=== PATIENT | female | born 1970 | race Caucasian/White ===

== ENCOUNTER 2018-05-02 09:02 | Day surgery (SDC) | payer BC ==
[~2018-05-02 09:02] MED LIST: ACETAMINOPHEN 1,000 MG/100 ML BTL IV ONE; CEFAZOLIN 2 Gram 2 GM/50 ML BAG IVPB ONE
[2018-05-02] MEDS ORDERED: SUGAMMADEX SODIUM 200 MG/2 ML VIAL IV ONE (09:03)
[2018-05-02] MEDS ORDERED: METOCLOPRAMIDE 10 MG TABLET PO ONE (09:03)
[2018-05-02] MEDS ORDERED: EPINEPHRINE 1 MG/ML AMPUL SQ ONE (09:03)
[2018-05-02] MEDS ORDERED: SUCCINYLCHOLINE 20 MG/ML 10ML IVP ONE (09:03)
[2018-05-02] MEDS ORDERED: FENTANYL PF 100MCG/2ML VIAL IV ONE (09:03)
[2018-05-02] MEDS ORDERED: ONDANSETRON HCL IV 4 MG/2 ML VIAL IVP ONE (09:03)
[2018-05-02] MEDS ORDERED: BUPIVACAINE LIPOSOME/PF 133MG/10ML VIAL IV ONE (09:03)
[2018-05-02] MEDS ORDERED: KETOROLAC 30 MG/ML VIAL IVP ONE (09:03)
[2018-05-02] MEDS ORDERED: DEXAMETHASONE 4 MG/ML 1ML VIAL IVP ONE (09:03)
[2018-05-02] MEDS ORDERED: LIDOCAINE 2% MDV (20MG/ML) 20ML VIAL IV ONE (09:03)
[2018-05-02] MEDS ORDERED: SEVOFLURANE 250 ML INH ONE (09:03)
[2018-05-02] MEDS ORDERED: FAMOTIDINE 20MG TABLET PO ONE (09:03)
[2018-05-02] MEDS ORDERED: SCOPOLAMINE 1 PATCH TDSY TD ONE (09:03)
[2018-05-02] MEDS ORDERED: MIDAZOLAM HCL 2MG/2ML VIAL IV ONE (09:03)
[2018-05-02] MEDS ORDERED: MORPHINE SULFATE PF 10MG/10ML VIAL IV ONE (09:03)
[2018-05-02] MEDS ORDERED: BUPIVACAINE 0.5% W/EPI MPF 30 ML VIAL IVP ONE (09:03)
[2018-05-02] MEDS ORDERED: METHYLPREDNISOLONE 40MG/VIAL IM ONE (09:03)
[2018-05-02] MEDS ORDERED: PROPOFOL 10 MG/ML VIAL IV ONE (09:03)
--- NOTE | 2018-05-02 14:09 | Operative Note ---
DATE OF SURGERY: 05/02/2018 PREOPERATIVE DIAGNOSIS: RIGHT SHOULDER IMPINGEMENT. POSTOPERATIVE DIAGNOSES: 1. CHRONICALLY TORN RIGHT ROTATOR CUFF TENDON. 2. POSTERIOR SUPERIOR GLENOHUMERAL LABRAL TEAR. 3. PROFOUND EXTERNAL IMPINGEMENT RIGHT SHOULDER. 4. RIGHT SHOULDER DISTAL CLAVICLE ARTHROSIS. PROCEDURE: 1. REPAIR OF A CHRONICALLY TORN RIGHT ROTATOR CUFF TENDON. 2. RIGHT SHOULDER ARTHROSCOPY WITH INTERARTICULAR DEBRIDEMENT. 3. RIGHT SHOULDER OPEN ACROMIOPLASTY, CA LIGAMENT RESECTION, SUBACROMIAL BURSECTOMY. 4. RIGHT SHOULDER DISTAL CLAVICLE RESECTION. STAFF SURGEON: PABLO MARRERO M.D. ANESTHESIA: GENERAL. PREPARATION: CHLORAPREP. INDIVIDUAL CONSIDERATIONS: NONE. PROCEDURE: The patient was taken to the Operating Room and placed supine on the operating table. She had had a successful induction with general anesthetic. She was then placed in a semi-seated beach chair position and the right arm and shoulder were prepped and draped in the usual fashion. Examination under anesthesia showed no instability. The patient had a posterior portal identified for arthroscopy. The skin was infiltrated with 0.5% Marcaine with Epinephrine prior. An #18 gauge spinal needle was placed in the joint and the joint was inflated with normal saline with a 60 mL syringe. A stab wound was made and a blunt tip trocar for the scope was placed in the joint and the joint was inflated with normal saline. An anterior accessory portal was then made just inferior to the intact long head of the biceps tendon in a retrograde fashion with a Wissinger rosa and the joint was irrigated out. The patient had an obvious tear of the rotator cuff at the supraspinatus. The glenohumeral joint was normal. Subscapularis and long head were normal. She had fraying of the labrum from heights to 8 to 1 o'clock. This was smoothed off with a shaver. The inferior pouch was free of loose bodies. After irrigation, the portals were closed with sky. The patient had an anterior approach to the subacromial space and distal clavicle. The skin was again infiltrated with 0.5% Marcaine with Epinephrine prior. Sharp dissection carried down through skin and subcutaneous tissues. Small veins were coagulated with a Bovie. An anterior deltoid interval was developed. Care was taken not to split the deltoid more than about 4 cm distal to the anterior tip of the acromion to prevent injury to the axillary nerve. Once in the subacromial space, there was a gavin of fluid consistent with a tear. The deltoid was then taken subperiosteally off the anterior aspect of the acromion, over the top of the intact CA ligament, and off the anterior aspect of the degenerated distal clavicle. The CA ligament was resected with a Bovie. The distal clavicle was resected with an oscillating saw taking about 1 cm. The patient had a huge spur with a downsloping acromion anteriorly. An anterior acromioplasty was performed taking about 1 cm, most of this being spur, and tapering to wedge posteromedially to include the spur at the AC joint. The undersurface was then smoothed with a rasp. A very thick bursa was debrided out. She had an obvious tear of the rotator cuff measuring about 2 cm. It looked subacute and retracted. I was able to debride it to good bleeding tendon and mobilize it. I brought it down to a trough, which I made with a bur at the tuberosity. I placed retention sutures into the end of the tendon and then brought it into the trough and then, through holes distally, I tied this down and secured it. I put some [id number] sutures on top just to reinforce the repair. This was thought to be anatomic and I put the shoulder through a full range of motion to ensure no further impingement. After irrigation, the deltoid was reattached to the remaining acromion with multiple interrupted #2 Vicryl going directly through the bony acromion. The periosteal cuff of the distal clavicle was closed with a running #2 Vicryl. The anterior deltoid interval was closed with a running #1 Vicryl. The subcu was closed with 2-0 Plus Vicryl and the skin was closed with 3-0 Stratafix. The patient had 15 mL of 0.5% Marcaine with Epinephrine along with 10 mg of Morphine injected into the subacromial space and a sterile Bulkee compressive dressing and sling were applied. The patient tolerated the procedures well. Needle and sponge counts were correct, estimated blood loss was about 100 mL. She was taken back to Recovery in good condition. There were no complications. JOB NUMBER: [id number] [facility]
== END 2018-05-02 14:50 | disposition home or self-care (01) ==
LOC: SUR 09:02
PROVIDERS: ATTEND Orthopaedic Surgery
DX: M75.111 Incomplete rotator cuff tear or rupture of right shoulder, not specified as traumatic (principal); S43.432A Superior glenoid labrum lesion of left shoulder, initial encounter; M75.41 Impingement syndrome of right shoulder; M19.011 Primary osteoarthritis, right shoulder; G25.81 Restless legs syndrome
CPT/HCPCS: C9290; J0171; J0330; J1030; J1885; J2405; J3490